=== PATIENT | male | born 1945 | race Caucasian/White ===

== ENCOUNTER 2017-12-20 14:31 | Emergency (ER) | payer OTHER ==
[~2017-12-20] VITALS: Ht 180.3 cm; Wt 72.6 kg
[2017-12-20 14:59] VITALS: BP 133/76
[2017-12-20] MEDS ORDERED: NKM (15:04)
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
[2017-12-20] MEDS ORDERED: CEPHALEXIN500 MG ORAL (15:37)
[2017-12-20] MEDS ORDERED: BACTRIM DS TAB1 EAC1 ORAL (15:37)
[2017-12-20 15:48] VITALS: BP 133/76
--- NOTE | 2017-12-20 17:55 | Diagnostic Imaging Report ---
Indication: Pain Technique: XRAY Leg Lower Tib Fib 2v L Comparison: None Findings: There is no evidence of acute fracture or dislocation. There are moderate degenerative changes of the partially visualized knee with chondrocalcinosis and tricompartmental osteophytes as well as joint space narrowing. The partially visualized ankle is grossly preserved. No radiopaque foreign body seen. IMPRESSION: No evidence of acute fracture or dislocation. Moderate osteoarthrosis of the partially visualized knee.
== END 2017-12-20 16:30 | disposition home or self-care (01) ==
LOC: EMR 16:21
DX: R21 Rash and other nonspecific skin eruption (principal); M17.12 Unilateral primary osteoarthritis, left knee
CPT/HCPCS: 99284

== ENCOUNTER 2020-10-15 04:29 | Inpatient (IN) | payer OTHER ==
[~2020-10-15] VITALS: Ht 175.3 cm; Wt 70.3 kg
[2020-10-15] VITALS (20 sets, daily range): BP systolic 111–198; BP diastolic 59–132
[~2020-10-15 04:29] MED LIST: BACTRIM DS TAB1 EAC1 ORAL; CEPHALEXIN500 MG ORAL; NKM
--- NOTE | 2020-10-15 04:35 | NUR ---
Patient arrived to ER via ambulatory c/o fall that occured about 30 minutes ago, patient reports of waking up on the floor. and fell down , pte report LOC for almost 2 min. Patient presents with a hematoma located on patients left upper forehead . New orders received from EDP and carried out. All procedures were explain to the patient . Patient verbalized understanding. Safety and comfort measures taken: bed set in low position, frequent rounds, call light within reach. Will continue monitoring the patient during the sift.
--- NOTE | 2020-10-15 05:01 | Emergency Room Report ---
History of Present Illness General Chief Complaint: Multiple Trauma/Fall Source: Patient Present Illness HPI 74-year-old male presents for evaluation. States that he woke up on the floor next to his bed. Has a large swelling to his forehead. Does not remember what happened. Also in triage heart rate is irregular. States that his family history of A. fib. Does not take any medication for it at the time. Denies chest pain or shortness of breath. Denies any dizziness. No other aggravating relieving factors. 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 Patient History Past Medical History: none Past Surgical History: none Pertinent Family History: none Social History: Denies: smoking, alcohol use, drug use Immunizations: UTD Reviewed Nursing Documentation: PMH: Agreed; PSxH: Agreed Nursing Documentation-PMH Past Medical History: No History, Except For Review of Systems All Other Systems: negative except mentioned in HPI Physical Exam Vital Signs Date Time Temp Pulse Resp B/P (MAP) Pulse Ox O2 Delivery O2 Flow Rate FiO2 10/15/20 04:37 96.8 34 18 138/82 (100) 95 Room Air Sp02 EP Interpretation: reviewed, normal General Appearance: no apparent distress, alert, GCS 15, non-toxic Head: normocephalic, other - large hematoma to forehead Eyes: bilateral eye normal inspection, bilateral eye PERRL ENT: hearing grossly normal, normal pharynx, no angioedema, normal voice Neck: full range of motion, supple/symm/no masses Respiratory: chest non-tender, lungs clear, normal breath sounds, speaking full sentences Cardiovascular #1: bradycardia Cardiovascular #2: 2+ carotid (R), 2+ carotid (L), 2+ radial (R), 2+ radial (L), 2+ dorsalis pedis (R), 2+ dorsalis pedis (L) Gastrointestinal: normal bowel sounds, non tender, soft, non-distended, no guarding, no rebound Rectal: deferred Genitourinary: normal inspection, no CVA tenderness Musculoskeletal: back normal, normal range of motion, gait/station normal, non- tender Neurologic: alert, motor strength/tone normal, oriented x3, sensory intact, responsive, speech normal Psychiatric: judgement/insight normal, memory normal, mood/affect normal, no suicidal/homicidal ideation Reflexes: 3+ bicep (R), 3+ bicep (L), 3+ tricep (R), 3+ tricep (L), 3+ knee (R), 3+ knee (L) Skin: no rash Lymphatic: no adenopathy Procedures Critical Care Time Critical Care Time Critical care shortcut i. I feel this is a highly complex case requiring extensive working including EKG/Rhythm strip, Xray/CT/US, Blood/urine lab work, repeat exams while in ED, and administration of strong opiates/narcotics for pain control, admission to hospital or close patient follow up. Total time: 60 min bedside evaluation and treatment excludes procedures (EKG). Reason for critical care: syncope, heart block Possible complications: hypotension, hypertension, ID, shock, arrhythmias, metabolic acidosis, end organ damage, respiratory failure. Interventions: Labs, IV fluids, EKG, chest x-ray, CT head, repeat EKG, discussion with cardiology, discussion with the EP, aspirin, ICU Course: Patient presenting with syncopal episode and head injury. Large swelling to forehead. CT head negative. Troponin minimally elevated. Initial EKG appears has a flutter however patient is shaking significantly. Once warming blankets applied and reassessed repeat EKG shows to be third-degree heart block. Blood pressure maintaining. Patient alert and oriented. Discussed with cardiology. Echo ordered. Aspirin given. Patient will be admitted to ICU Consultations: nursing staff, EMS, family Performed by: Dr Rowell Tolerated well condition = critical j. because of unstable vital signs this patient had a condition that could potentially threaten life or limb. I feel this is a critical patient who required my full attention while patient was considered critical. Total Critical Care Time excluding procedures was greater than 60 minutes Medical Decision Making Diagnostic Impression: Primary Impression: Syncope Qualified Codes: R55 - Syncope and collapse Additional Impressions: Head injury Qualified Codes: S09.90XA - Unspecified injury of head, initial encounter Third degree heart block ER Course Hospital Course 74-year-old male presents with syncopal episode, head injury from home Differential diagnoses include: ID/unstable angina, arrythmia, dehydration, CVA/TIA Clinical course Patient placed on stretcher. on groundwater monitoring technician. After initial history and physical I ordered labs, EKG, chest x-ray, IVFs, CT Brain labs reviewed- minimal leukocytosis, hemoglobin/hematocrit ok, electrolytes okay, initial troponin 0.062 EKG-initial EKG appears as a flutter however patient was shaking tremendously stating he is cold. Warming blankets provided on repeat EKG appears to be in third-degree heart block confirmed with cardiology Chest x-ray- no acute process CT brain-no intracranial process, scalp hematoma noted Patient is mentating and blood pressure is maintaining. No immediate requirement for transcutaneous pacing. However patient will likely require a pacemaker per discussion with cardiology. Echo ordered. Aspirin given. Patient will be admitted to the ICU Case discussed with Dr. Ambrosio and he agreed to accept the patient to his service for further care and support I. I feel this is a highly complex case requiring extensive working including EKG/Rhythm strip, Xray/CT/US, Blood/urine lab work, repeat exams while in ED, and administration of strong opiates/narcotics for pain control, admission to hospital or close patient follow up. Diagnosis -syncope, head injury, third-degree heart block admitted to ICU in critical condition Labs Test 10/15/20 04:55 10/16/20 03:11 Prothrombin Time 11.2 SEC (9.30-11.50) Prothromb Time International Ratio 1.0 (0.9-1.1) Activated Partial Thromboplast Time 24 SEC (23-33) White Blood Count 8.5 K/UL (4.8-10.8) Red Blood Count 4.08 M/UL (4.70-6.10) Hemoglobin 13.6 G/DL (14.2-18.0) Hematocrit 40.1 % (42.0-52.0) Mean Corpuscular Volume 98 FL (80-99) Mean Corpuscular Hemoglobin 33.4 PG (27.0-31.0) Mean Corpuscular Hemoglobin Concent 34.0 G/DL (32.0-36.0) Red Cell Distribution Width 12.6 % (11.6-14.8) Platelet Count 126 K/UL (150-450) Mean Platelet Volume 6.9 FL (6.5-10.1) Neutrophils (%) (Auto) 68.9 % (45.0-75.0) Lymphocytes (%) (Auto) 20.8 % (20.0-45.0) Monocytes (%) (Auto) 8.1 % (1.0-10.0) Eosinophils (%) (Auto) 1.8 % (0.0-3.0) Basophils (%) (Auto) 0.5 % (0.0-2.0) Sodium Level 144 MMOL/L (136-145) Potassium Level 3.6 MMOL/L (3.5-5.1) Chloride Level 111 MMOL/L (98-107) Carbon Dioxide Level 24 MMOL/L (21-32) Anion Gap 9 mmol/L (5-15) Blood Urea Nitrogen 25 mg/dL (7-18) Creatinine 1.2 MG/DL (0.55-1.30) Estimat Glomerular Filtration Rate 58.9 mL/min (>60) Glucose Level 87 MG/DL (74-106) Calcium Level 8.7 MG/DL (8.5-10.1) Total Bilirubin 0.6 MG/DL (0.2-1.0) Aspartate Amino Transf (AST/SGOT) 23 U/L (15-37) Alanine Aminotransferase (ALT/SGPT) 32 U/L (12-78) Alkaline Phosphatase 52 U/L (46-116) Troponin I 0.107 ng/mL (0.000-0.056) Pro-B-Type Natriuretic Peptide 4828 pg/mL (0-125) Total Protein 5.5 G/DL (6.4-8.2) Albumin 3.2 G/DL (3.4-5.0) Globulin 2.3 g/dL Albumin/Globulin Ratio 1.4 (1.0-2.7) Thyroid Stimulating Hormone (TSH) 2.816 uiU/mL (0.358-3.740) Free Thyroxine 0.98 NG/DL (0.76-1.46) EKG Diagnostic Results Troponin ordered: Yes Rate: bradycardiac Rhythm: other - 3rd degree block ST Segments: no acute changes ASA given to the pt in ED: Yes Rhythm Strip Diag. Results EP Interpretation: yes Rhythm: other - 3rd degree block Chest X-Ray Diagnostic Results Chest X-Ray Diagnostic Results : Chest X-Ray Ordered: Yes # of Views/Limited/Complete: 1 View Indication: Chest Pain EP Interpretation: Yes Interpretation: no consolidation, no effusion, no pneumothorax, no acute cardiopulmonary disease Impression: No acute disease Electronically Signed by: Electronically signed by Luis Rowell MD CT/MRI/US Diagnostic Results CT/MRI/US Diagnostic Results : Imaging Test Ordered: CT Head Impression Procedure: CT Head no Contrast EXAM: CT Head Without Intravenous Contrast CLINICAL HISTORY: SYNCOPE TECHNIQUE: Axial computed tomography images of the head/brain without intravenous contrast. CTDI is 53.4 mGy and DLP is 1098.9 mGy-cm. One or more of the following dose reduction techniques were used: automated exposure control, adjustment of the mA and/or kV according to patient size, use of iterative reconstruction technique. COMPARISON: No relevant prior studies available. FINDINGS: Brain: No hemorrhage, extra-axial fluid collection, mass effect, or edema. Ventricles: Unremarkable. Bones/joints: Unremarkable. No fracture. Soft tissues: Anterior left scalp hematoma. Sinuses: Unremarkable as visualized. Mastoid air cells: Unremarkable as visualized. IMPRESSION: 1. No acute intracranial abnormality. 2. Anterior left scalp hematoma. Last Vital Signs Date Time Temp Pulse Resp B/P (MAP) Pulse Ox O2 Delivery O2 Flow Rate FiO2 10/15/20 04:37 96.8 34 18 138/82 (100) 95 Room Air Status: improved Disposition: ADMITTED INPATIENT Condition: Critical Referrals: NON PHYSICIAN (PCP) Luis Rowell MD Oct 15, 2020 05:01
[2020-10-15 05:10] LABS: BASOPHILS % (AUTO) 0.8 % (0.0-2.0); EOSINOPHILS % (AUTO) 2.5 % (0.0-3.0); HEMATOCRIT 48.5 % (42.0-52.0); HEMOGLOBIN 16.1 G/DL (14.2-18.0); LYMPHOCYTES % (AUTO) 24.7 % (20.0-45.0); MEAN CORPUSCULAR VOLUME 99 FL (80-99); MONOCYTES % (AUTO) 7.4 % (1.0-10.0); NEUTROPHILS % (AUTO) 64.6 % (45.0-75.0); PLATELET COUNT 201 K/UL (150-450); RED CELL DISTRIBUTION WIDTH 12.7 % (11.6-14.8)
[2020-10-15 05:21] LABS: CALCIUM 9.4 MG/DL (8.5-10.1); CREATININE 1.2 MG/DL (0.55-1.30); POTASSIUM 3.3 MMOL/L (3.5-5.1)
[2020-10-15 05:32] LABS: ALBUMIN/GLOBULIN RATIO 1.3 (1.0-2.7); BILIRUBIN,TOTAL 0.7 MG/DL (0.2-1.0)
--- NOTE | 2020-10-15 05:52 | NUR ---
Patient in bed in comfortable position All vitals signs were taken and reported. Urine and blood were collected and sent them to the lab. Fluid is running. Pte already went to a CT accopained of transporter. Patient continuous attached to the monitor. Will continue to monitor the patient.
--- NOTE | 2020-10-15 05:53 | Diagnostic Imaging Report ---
EXAM: XR Chest, 1 View CLINICAL HISTORY: SYNCOPE TECHNIQUE: Frontal view of the chest. COMPARISON: No relevant prior studies available. FINDINGS: Lungs: No consolidation. Pleural space: No pleural effusion. No pneumothorax. Heart: Unremarkable. No cardiomegaly. IMPRESSION: No acute cardiopulmonary abnormality.
--- NOTE | 2020-10-15 05:53 | Diagnostic Imaging Report ---
EXAM: CT Head Without Intravenous Contrast CLINICAL HISTORY: SYNCOPE TECHNIQUE: Axial computed tomography images of the head/brain without intravenous contrast. CTDI is 53.4 mGy and DLP is 1098.9 mGy-cm. One or more of the following dose reduction techniques were used: automated exposure control, adjustment of the mA and/or kV according to patient size, use of iterative reconstruction technique. COMPARISON: No relevant prior studies available. FINDINGS: Brain: No hemorrhage, extra-axial fluid collection, mass effect, or edema. Ventricles: Unremarkable. Bones/joints: Unremarkable. No fracture. Soft tissues: Anterior left scalp hematoma. Sinuses: Unremarkable as visualized. Mastoid air cells: Unremarkable as visualized. IMPRESSION: 1. No acute intracranial abnormality. 2. Anterior left scalp hematoma.
--- NOTE | 2020-10-15 06:26 | NUR ---
ICU Nurse Note: Received report from KATY Hong. Per report, patient walked into the ER c/o fall that occured about 30 minutes prior to arrival. Patient presents with a hematoma located on patients left upper forehead. CT head is negative. Parient HR is low to 50s. BP 142/86. 1000mL bolus is infusing. Dr. Stearns is planning to put a pacemaker. Primary MD will be Dr. Ambrosio. VRE and MRSA test will be done at ED. Waiting arrival of patient.
--- NOTE | 2020-10-15 06:30 | NUR ---
Pte was admitted to ICU report given to the nurse . All belongs were packaged and sent them with the pte. Pacient left ER in stable condition accompained of addi BURNS.
--- NOTE | 2020-10-15 07:06 | NUR ---
NURSE NOTES: Patient transferred to the ICU floor. Reconnect to cardioac monitor and took vitals. Will endorse to AM shift. Detail, please SEE FLARING MACHINE OPERATOR note.
--- NOTE | 2020-10-15 07:10 | NUR ---
NURSE NOTES: Received report from Pauline Tariq RN.Pt is a new admission fr ED awake,alert oriented in RA noted no resp distress,denies any c/o chest pain or discomfort,pt on Aflutter in and out heart block on the monitor,skin warm and dry with IV heplock x2 LFA and RAC intact,SR up x2 HOB elevated bed lock in lowest position,will continue with plans of care.
--- NOTE | 2020-10-15 07:50 | NUR ---
NURSE NOTES: Called Dr Ambrosio for admission orders,awaiting return of call.
--- NOTE | 2020-10-15 09:00 | NUR ---
NURSE NOTES: Pt with hematoma to LT forehead ,ice pack applied.
--- NOTE | 2020-10-15 09:10 | History & Physical ---
History and Physical History & Physicial 74-year-old male presents for evaluation. Patient woke up on the floor next to his bed. + large swelling to his forehead. Does not remember what happened. Does not take any medication for it at the time. Denies chest pain or shortness of breath. Denies any dizziness. No other aggravating relieving factors. Denies any other associated symptoms. noted to be in possible Afib and heart block Allergies: No Known Allergies (Unverified , 12/20/17) Patient History Past Medical History: none Past Surgical History: none Pertinent Family History: none Social History: Denies: smoking, alcohol use, drug use Reviewed of systems: otherwise negative Physical WDWN NAD clear breath sounds bilaterally without rhonchi or wheeze [id number] lucia without MRG NABS nontender no HSM no CCE nonfocal Laboratory Tests 10/15/20 04:55: White Blood Count 12.0H, Red Blood Count 4.90, Hemoglobin 16.1, Hematocrit 48.5, Mean Corpuscular Volume 99, Mean Corpuscular Hemoglobin 32.9H, Mean Corpuscular Hemoglobin Concent 33.2, Red Cell Distribution Width 12.7, Platelet Count 201, Mean Platelet Volume 7.8, Neutrophils (%) (Auto) 64.6, Lymphocytes (%) (Auto) 24.7, Monocytes (%) (Auto) 7.4, Eosinophils (%) (Auto) 2.5, Basophils (%) (Auto) 0.8, Prothrombin Time 11.2, Prothromb Time International Ratio 1.0, Activated Partial Thromboplast Time 24, Sodium Level 143, Potassium Level 3.3L, Chloride Level 107, Carbon Dioxide Level 26, Anion Gap 10, Blood Urea Nitrogen 21H, Creatinine 1.2, Estimat Glomerular Filtration Rate 58.9, Glucose Level 124H, Calcium Level 9.4, Total Bilirubin 0.7, Aspartate Amino Transf (AST/SGOT) 30, Alanine Aminotransferase (ALT/SGPT) 45, Alkaline Phosphatase 70, Troponin I 0.062H, Pro-B-Type Natriuretic Peptide 3417H, Total Protein 7.1, Albumin 4.0, Globulin 3.1, Albumin/Globulin Ratio 1.3 IMPRESSION possible a flutter possible heart block syncope PLAN ICU care EP to see echo TSH iv hydration external pacer if needed impression, plan, and exam edited and reviewed in detail care discussed with Maninder Castro MD Oct 15, 2020 09:10
--- NOTE | 2020-10-15 10:30 | NUR ---
NURSE NOTES: Dr Ambrosio here and seen pt , admission orders given.
[2020-10-15] MEDS: Pantoprazole Inj IVP SCH (11:14)
--- NOTE | 2020-10-15 15:00 | NUR ---
NURSE NOTES: Dr Rothman at bedside,discussed with pt re plans of care,insertion of pacemaker,pt undecided to sign consent,will be talking ist to his family member a hospital educator for a second opinion.
--- NOTE | 2020-10-15 15:01 | NUR ---
CASE MANAGEMENT:REVIEW 74 YR OLD MALE PRESENTED TO ER CC: WOKE UP ON THE FLOOR. LT UPPER FOREHEAD HEMATOMA NOTED SI: SYNCOPE. AFLUTTER. HEAD INJURY 96.8 34 18 138/82 95% ON RA WBC+12.0 TROPONIN(+) 0.062 BNP+3417 TSH+5.315 IS: 1L NS BOLUS ASA PO ATROPINE PRN CT HEAD CXR : ICU STATUS
--- NOTE | 2020-10-15 15:24 | Cardiac Electrophysiology PN ---
Subjective Subjective [id number] Objective Last 24 Hour Vital Signs Date Time Temp Pulse Resp B/P (MAP) Pulse Ox O2 Delivery O2 Flow Rate FiO2 10/15/20 15:00 91 21 152/59 (90) 93 10/15/20 14:00 119 21 119/68 (85) 93 10/15/20 13:00 80 22 111/71 (84) 95 10/15/20 12:06 Nasal Cannula 2.0 10/15/20 12:00 98.4 71 15 144/72 (96) 99 10/15/20 11:00 31 22 188/59 (102) 99 10/15/20 10:00 31 13 137/80 (99) 98 10/15/20 09:03 83 20 137/80 (99) 98 10/15/20 09:00 28 13 97 10/15/20 08:00 83 21 97 10/15/20 08:00 97.9 10/15/20 08:00 Nasal Cannula 2.0 10/15/20 08:00 82 19 137/80 (99) 97 10/15/20 08:00 30 10/15/20 08:00 Nasal Cannula 2.0 10/15/20 07:00 88 17 144/66 (92) 98 10/15/20 06:39 98.0 86 18 137/84 (101) 98 10/15/20 05:50 97.5 40 20 130/88 97 Room Air 10/15/20 04:37 96.8 34 18 138/82 (100) 95 Room Air Intake and Output 10/14/20 10/15/20 19:00 07:00 Intake Total 0 ml Balance 0 ml Intake Oral 0 ml Laboratory Tests Test 10/15/20 04:55 White Blood Count 12.0 K/UL (4.8-10.8) H Red Blood Count 4.90 M/UL (4.70-6.10) Hemoglobin 16.1 G/DL (14.2-18.0) Hematocrit 48.5 % (42.0-52.0) Mean Corpuscular Volume 99 FL (80-99) Mean Corpuscular Hemoglobin 32.9 PG (27.0-31.0) H Mean Corpuscular Hemoglobin Concent 33.2 G/DL (32.0-36.0) Red Cell Distribution Width 12.7 % (11.6-14.8) Platelet Count 201 K/UL (150-450) Mean Platelet Volume 7.8 FL (6.5-10.1) Neutrophils (%) (Auto) 64.6 % (45.0-75.0) Lymphocytes (%) (Auto) 24.7 % (20.0-45.0) Monocytes (%) (Auto) 7.4 % (1.0-10.0) Eosinophils (%) (Auto) 2.5 % (0.0-3.0) Basophils (%) (Auto) 0.8 % (0.0-2.0) Prothrombin Time 11.2 SEC (9.30-11.50) Prothromb Time International Ratio 1.0 (0.9-1.1) Activated Partial Thromboplast Time 24 SEC (23-33) Sodium Level 143 MMOL/L (136-145) Potassium Level 3.3 MMOL/L (3.5-5.1) L Chloride Level 107 MMOL/L (98-107) Carbon Dioxide Level 26 MMOL/L (21-32) Anion Gap 10 mmol/L (5-15) Blood Urea Nitrogen 21 mg/dL (7-18) H Creatinine 1.2 MG/DL (0.55-1.30) Estimat Glomerular Filtration Rate 58.9 mL/min (>60) Glucose Level 124 MG/DL (74-106) H Calcium Level 9.4 MG/DL (8.5-10.1) Total Bilirubin 0.7 MG/DL (0.2-1.0) Aspartate Amino Transf (AST/SGOT) 30 U/L (15-37) Alanine Aminotransferase (ALT/SGPT) 45 U/L (12-78) Alkaline Phosphatase 70 U/L (46-116) Troponin I 0.062 ng/mL (0.000-0.056) Pro-B-Type Natriuretic Peptide 3417 pg/mL (0-125) H Total Protein 7.1 G/DL (6.4-8.2) Albumin 4.0 G/DL (3.4-5.0) Globulin 3.1 g/dL Albumin/Globulin Ratio 1.3 (1.0-2.7) Thyroid Stimulating Hormone (TSH) 5.315 uiU/mL (0.358-3.740) Jacky Rothman MD Oct 15, 2020 15:24
--- NOTE | 2020-10-15 16:00 | NUR ---
NURSE NOTES: Pt decided to have the procedure,pacemaker insertion on Saturday but would like to go home today and come back Saturday.Call placed to Dr Ambrosio re pt's wanting to be discharge today.
--- NOTE | 2020-10-15 16:14 | Consultation ---
DATE OF CONSULTATION: 10/15/2020 CARDIAC ELECTROPHYSIOLOGY CONSULTATION CONSULTING PHYSICIAN: Jacky Rothman MD REFERRING PHYSICIAN: Maninder Ambrosio MD REASON FOR CONSULTATION: Atrial flutter as well as syncope and complete heart block. HISTORY OF PRESENT ILLNESS: The patient is a 74-year-old gentleman with history of syncope a year ago as well as 9 months ago for which he did not seek any medical attention. Today, the patient woke up on the floor next to his bed with a large swelling on his forehead. He does not remember what happened. In the emergency room, the patient was in atrial flutter with complete heart block and then converted to sinus rhythm again with complete heart block with heart rate down to 30s. The patient was then admitted to intensive care unit and cardiac electrophysiology consultation was requested for further evaluation. It is of note the patient is not on any sinus-shira or AV-shira blocking agents and is on essentially no medication at home. REVIEW OF SYSTEMS: Negative other than what is mentioned in the history of present illness. PAST MEDICAL HISTORY: Negative. PAST SURGICAL HISTORY: Negative. FAMILY HISTORY: His father had atrial flutter. 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 PHYSICAL EXAMINATION: VITAL SIGNS: Show blood pressure of 152/59, pulse is 70 but as low as 31 respirations 18, and he is afebrile. HEAD AND NECK: Shows no JVD or carotid bruit. LUNGS: Clear. CARDIOVASCULAR: Regular S1 and S2 with no gallop or murmur. ABDOMEN: Soft. EXTREMITIES: No pitting edema. LABORATORY AND DIAGNOSTIC DATA: His labs show white count of 12, hemoglobin 16, hematocrit 48.5, and platelet count of 201. Sodium 142, potassium 3.3, BUN of 21, creatinine 1.2, and glucose of 124. Troponin 0.062. ProBNP is 3417. TSH is 5.315. ASSESSMENT AND PLAN: 1. Complete heart block, not due to correctable cause. The patient is off of any sinus-shira or AV-shira blocking agents. The TSH is mildly elevated at 5.3. At this range, hypothyroidism would not cause this significant complete heart block resulting in syncope. This is a class 1 indication for permanent pacemaker implantation; however, at this time, the patient is refusing temporary transcutaneous or transvenous pacing and wants to think about permanent pacemaker placement. 2. Transient atrial flutter. The patient says his father also had atrial flutter. Currently, he converted spontaneously to sinus rhythm. He may need anticoagulation, but most importantly, he will need pacemaker implantation. After pacemaker implantation, we can see the burden of atrial flutter by pacemaker checks. 3. Elevated TSH. Endocrinology consultation is pending. Thank you very much, Dr. Ambrosio, for allowing me to participate in the care of this patient. Please do not hesitate to contact me for any questions regarding my evaluation. Jacky Rothman M.D. [facility] JOB#: [id number] CC:
--- NOTE | 2020-10-15 17:00 | NUR ---
NURSE NOTES: Dr Ambrosio returned call and said to have pt signed AMA if he insist on going home.Explained to pt re risk and danger to himself if he will go home at this time.Pt called his family again and have a discussion with them.
--- NOTE | 2020-10-15 18:29 | Consultation ---
DATE OF CONSULTATION: 10/15/2020 CARDIOLOGY CONSULTATION CONSULTING PHYSICIAN: Naresh Topete MD. REFERRING PHYSICIAN: Maninder Ambrosio MD. REASON FOR CONSULTATION: Atrial flutter and heart block. HISTORY OF PRESENT ILLNESS: I was contacted by the emergency room physician early this morning to discuss management of this 74-year-old white male, who presented to the hospital with syncope. This was his third event starting dating back to almost a year ago. The patient did not recall the event, but woke up on the floor with a large swelling on his forehead. In the emergency room, his EKG revealed atrial flutter with episodes of complete heart block then converted to sinus rhythm. The patient's blood pressure remained stable. PAST MEDICAL HISTORY: The patient has no other medical history. MEDICATIONS: He does not take any medications. SOCIAL HISTORY: Negative for smoking, alcohol, or substance abuse. FAMILY HISTORY: His father had atrial flutter. REVIEW OF SYSTEMS: Otherwise unremarkable. PHYSICAL EXAMINATION: VITAL SIGNS: Blood pressure 150/60, pulse 40, respirations 18. HEENT: Conjunctivae are pink. Oropharynx clear. NECK: Supple. No bruits. Jugular venous pressure normal. LUNGS: Clear. CARDIAC: Regular rhythm, slow rate. Normal S1, S2. No murmur. ABDOMEN: Soft. EXTREMITIES: No edema. LABORATORY DATA: Notable for TSH of 5.3, pro-natriuretic peptide of 3400. Potassium 3.3, BUN 21, creatinine 1.2, sodium 142. Hemoglobin 16. elevated minimally at 0.062. IMPRESSION: 1. Conduction system disease with advanced heart block. 2. Paroxysmal atrial flutter, clinically insignificant. 3. TSH elevation that would unlikely cause this degree of heart block. 4. Elevated natriuretic peptide assay with no clinical signs of acute congestive heart failure presently. PLAN: 1. Cardiac monitoring. 2. Atropine at bedside. 3. Antiplatelet therapy. 4. I have asked the emergency room physician to contact Dr. Rothman as we will likely need a pacemaker, either a temporary or at least permanent during this hospital stay. 5. We will follow. Naresh Topete M.D. : [facility] JOB#: [id number] CC:
--- NOTE | 2020-10-15 18:55 | NUR ---
NURSE NOTES: Pt signed consent for Pacemaker insertion for tomorrow,called Dr Rothman to notify re pt's agreeing to sign consent for the procedure .Dr Rothman ordered to keep pt NPO post MN and start an IVF D5NS at 60 ml/hr.
--- NOTE | 2020-10-15 19:00 | NUR ---
Patient is calm no acute distress, is bradycardic refer to MR for vitals. Patient is GCS 15. Safety measures in place, call [facility] within reach.
--- NOTE | 2020-10-15 19:15 | NUR ---
NURSE HAND-OFF REPORT: Latest Vital Signs: Temperature 98.0 , Pulse 82 , B/P 125 /87 , Respiratory Rate 18 , O2 SAT 98 , Room Air, O2 Flow Rate 2.0 . Vital Sign Comment: unstable EKG Rhythm: 3rd Degree HB Rhythm change?: Scarlet CAPPS Notified?: RENE IBARRA MD Response: MD to See Patient Latest Moeller Fall Score: 45 Fall Risk: High Risk Safety Measures: Call light Within Reach, Bed Alarm Zone 2, Side Rails Side Rails x2, Bed position Low and Locked. Fall Precautions: Yellow Socks Yellow Gown Door Sign Patient Fall Education Report given to Carie Marques RN.
[2020-10-15] MEDS: Atropine Inj 1mg/10ml Syr IVP PRN (19:50)
[2020-10-15] MEDS: Heparin 5000 units/ml inj SUBQ SCH (21:00)
[2020-10-16] VITALS (25 sets, daily range): BP systolic 114–202; BP diastolic 53–152
[2020-10-16] MEDS: D5NS 1,000 ML IV SCH ×2 (00:29→11:40)
[2020-10-16] MEDS: Atropine Inj 1mg/10ml Syr IVP PRN (01:44)
[2020-10-16 05:50] LABS: BASOPHILS % (AUTO) 0.5 % (0.0-2.0); EOSINOPHILS % (AUTO) 1.8 % (0.0-3.0); HEMATOCRIT 40.1 % (42.0-52.0); HEMOGLOBIN 13.6 G/DL (14.2-18.0); LYMPHOCYTES % (AUTO) 20.8 % (20.0-45.0); MEAN CORPUSCULAR VOLUME 98 FL (80-99); MONOCYTES % (AUTO) 8.1 % (1.0-10.0); NEUTROPHILS % (AUTO) 68.9 % (45.0-75.0); PLATELET COUNT 126 K/UL (150-450); RED BLOOD COUNT 4.08 M/UL (4.70-6.10); RED CELL DISTRIBUTION WIDTH 12.6 % (11.6-14.8); WHITE BLOOD COUNT 8.5 K/UL (4.8-10.8)
[2020-10-16 06:52] LABS: ALBUMIN 3.2 G/DL (3.4-5.0); ALBUMIN/GLOBULIN RATIO 1.4 (1.0-2.7); BILIRUBIN,TOTAL 0.6 MG/DL (0.2-1.0); CALCIUM 8.7 MG/DL (8.5-10.1); CREATININE 1.2 MG/DL (0.55-1.30); POTASSIUM 3.6 MMOL/L (3.5-5.1)
--- NOTE | 2020-10-16 07:20 | NUR ---
NURSE NOTES: Report received from Carie Marques,travelling RN.Pt awake,alert noted no resp distress on RA refuse to wear O2,O2 sat 99%,denies any c/o chest pain HR 30/min,3rd deg HB,kept NPO post MN ,pt for pacemaker insertion,skin warm and dry,IV site to RAC and LT FA intact with IVF D5 1/2 NS at 60ml/hr ,both IV sites intact, SR up x2 HOB elevated bed lock in lowest position will continue with plans of care.,
--- NOTE | 2020-10-16 08:00 | NUR ---
NURSE NOTES: PT Seen by Dr Ambrosio,updated re pt status,discussed with plans of care,to discharge pt tomorrow when stable after the pacer insertion.
--- NOTE | 2020-10-16 08:48 | General Progress Note ---
Subjective Allergies: Coded Allergies: No Known Allergies (Unverified , 12/20/17) Subjective events noted cards/EP appreciated Objective Last 24 Hour Vital Signs Date Time Temp Pulse Resp B/P (MAP) Pulse Ox O2 Delivery O2 Flow Rate FiO2 10/16/20 08:00 Nasal Cannula 2.0 10/16/20 08:00 96.6 33 19 202/85 (124) 96 10/16/20 07:00 67 19 96 10/16/20 06:00 59 19 162/66 (98) 96 10/16/20 05:00 59 19 171/67 (101) 96 10/16/20 04:00 62 21 186/70 (108) 97 10/16/20 04:00 Nasal Cannula 2.0 10/16/20 03:00 74 27 114/53 (73) 98 10/16/20 02:00 76 24 145/65 (91) 10/16/20 00:00 Nasal Cannula 2.0 10/16/20 00:00 75 21 98 10/15/20 23:00 44 16 198/130 (152) 97 10/15/20 22:00 51 19 184/59 (100) 94 10/15/20 21:00 34 17 162/132 (142) 97 10/15/20 20:00 Nasal Cannula 2.0 10/15/20 20:00 39 16 176/59 (98) 97 10/15/20 19:00 68 17 170/62 (98) 97 10/15/20 18:00 82 18 125/87 (100) 98 10/15/20 17:00 98.0 101 31 122/78 (93) 98 10/15/20 16:00 Nasal Cannula 2.0 10/15/20 16:00 69 21 139/91 (107) 98 10/15/20 15:00 91 21 152/59 (90) 93 10/15/20 14:00 119 21 119/68 (85) 93 10/15/20 13:00 80 22 111/71 (84) 95 10/15/20 12:06 Nasal Cannula 2.0 10/15/20 12:00 98.4 71 15 144/72 (96) 99 10/15/20 11:00 31 22 188/59 (102) 99 10/15/20 10:00 31 13 137/80 (99) 98 10/15/20 09:03 83 20 137/80 (99) 98 10/15/20 09:00 28 13 97 Intake and Output 10/15/20 10/16/20 19:00 07:00 Intake Total 1530 ml 50 ml Output Total 701 ml 0 ml Balance 829 ml 50 ml Intake Oral 1130 ml 50 ml IV Total 400 ml Output Urine Total 701 ml 0 ml # Bowel Movements 2 1 Laboratory Tests 10/15/20 19:05: Troponin I 0.117H 10/16/20 03:11: Troponin I 0.107H, White Blood Count 8.5, Red Blood Count 4.08L, Hemoglobin 13.6L, Hematocrit 40.1L, Mean Corpuscular Volume 98, Mean Corpuscular Hemoglobin 33.4H, Mean Corpuscular Hemoglobin Concent 34.0, Red Cell Distribution Width 12.6, Platelet Count 126L, Mean Platelet Volume 6.9, Neutrophils (%) (Auto) 68.9, Lymphocytes (%) (Auto) 20.8, Monocytes (%) (Auto) 8.1, Eosinophils (%) (Auto) 1.8, Basophils (%) (Auto) 0.5, Sodium Level 144, Potassium Level 3.6, Chloride Level 111H, Carbon Dioxide Level 24, Anion Gap 9, Blood Urea Nitrogen 25H, Creatinine 1.2, Estimat Glomerular Filtration Rate 58.9, Glucose Level 87, Calcium Level 8.7, Total Bilirubin 0.6, Aspartate Amino Transf (AST/SGOT) 23, Alanine Aminotransferase (ALT/SGPT) 32, Alkaline Phosphatase 52, Pro-B-Type Natriuretic Peptide 4828H, Total Protein 5.5L, Albumin 3.2L, Globulin 2.3, Albumin/Globulin Ratio 1.4, Thyroid Stimulating Hormone (TSH) 2.816, Free Thyroxine 0.98 Height (Feet): 5 Height (Inches): 9.00 Weight (Pounds): 155 Objective WDWN NAD clear breath sounds bilaterally without rhonchi or wheeze [id number] lucia without MRG NABS nontender no HSM no CCE nonfocal Assessment/Plan Assessment/Plan: IMPRESSION transient a flutter possible heart block syncope pulmonary hypertension elevated TSH PLAN ICU care EP for pacemaker echo noted; may need right heart cath in future TSH iv hydration await cards clearance impression, plan, and exam edited and reviewed in detail care discussed with RN Ishaaya,Maninder M MD Oct 16, 2020 08:48
[2020-10-16] MEDS: Heparin 5000 units/ml inj SUBQ SCH ×2 (09:00→20:44)
[2020-10-16] MEDS: Pantoprazole Inj IVP SCH (09:22)
--- NOTE | 2020-10-16 11:30 | NUR ---
NURSE NOTES: hand blocker Carisa notified Dr Rothman and confirmed that Dr Rice said that Pacemaker surgery will be at 1400 today.
--- NOTE | 2020-10-16 13:15 | NUR ---
NURSE NOTES: Dr Rothman at bedside and seen pt before surgery.,per pt's request ,Dr Rothman called pt's family member ,a director of radiology.
[2020-10-16] MEDS ORDERED: Lidocaine 1% Plain 30 ml INJ ONE (13:27)
[2020-10-16] MEDS ORDERED: Isovue-M 300 15ml INJ ONE (13:27)
--- NOTE | 2020-10-16 13:27 | Cardiac Electrophysiology PN ---
Assessment/Plan Assessment/Plan 1. Complete heart block, not due to correctable cause. The patient is off of any sinus-shira or AV-shira blocking agents. The T4 and TSH are both normal. This is a class 1 indication for permanent pacemaker implantation; yesterday the patient was refusing temporary transcutaneous or transvenous pacing Today he is agreeable to PPM implant and is NPO and consent is signed 2. Transient atrial flutter. The patient says his father also had atrial flutter. Currently, he converted spontaneously to sinus rhythm. He may need anticoagulation, but most importantly, he will need pacemaker implantation. After pacemaker implantation, we can see the burden of atrial flutter by pacemaker checks. 3. Troponin leak. Low level and no CP. May need ischemia eval as inpatient or out patient FU Dr Efrem VAZQUEZ RN and Dr Hackett patient's out side registered nurse behavioral health Subjective Subjective Hr dropped to 20s in CHB. NPO for PPM implant today. He signded consent. At his request talked to Dr Hackett a family friend registered nurse behavioral health at [phone] who also agreed with PPM implant Objective Last 24 Hour Vital Signs Date Time Temp Pulse Resp B/P (MAP) Pulse Ox O2 Delivery O2 Flow Rate FiO2 10/16/20 13:00 98.6 30 15 136/56 (82) 98 10/16/20 12:00 Nasal Cannula 2.0 10/16/20 12:00 Nasal Cannula 2.0 10/16/20 12:00 37 17 164/64 (97) 98 10/16/20 11:12 30 11 202/61 (108) 100 10/16/20 09:00 30 19 181/72 (108) 96 10/16/20 08:00 Nasal Cannula 2.0 10/16/20 08:00 96.6 33 19 202/85 (124) 96 10/16/20 07:00 67 19 96 10/16/20 06:00 59 19 162/66 (98) 96 10/16/20 05:00 59 19 171/67 (101) 96 10/16/20 04:00 62 21 186/70 (108) 97 10/16/20 04:00 Nasal Cannula 2.0 10/16/20 03:00 74 27 114/53 (73) 98 10/16/20 02:00 76 24 145/65 (91) 10/16/20 00:00 Nasal Cannula 2.0 10/16/20 00:00 75 21 98 10/15/20 23:00 44 16 198/130 (152) 97 10/15/20 22:00 51 19 184/59 (100) 94 10/15/20 21:00 34 17 162/132 (142) 97 10/15/20 20:00 Nasal Cannula 2.0 10/15/20 20:00 39 16 176/59 (98) 97 10/15/20 19:00 68 17 170/62 (98) 97 10/15/20 18:00 82 18 125/87 (100) 98 10/15/20 17:00 98.0 101 31 122/78 (93) 98 10/15/20 16:00 Nasal Cannula 2.0 10/15/20 16:00 69 21 139/91 (107) 98 10/15/20 15:00 91 21 152/59 (90) 93 10/15/20 14:00 119 21 119/68 (85) 93 Intake and Output 10/15/20 10/16/20 19:00 07:00 Intake Total 1530 ml 110 ml Output Total 701 ml 0 ml Balance 829 ml 110 ml Intake Oral 1130 ml 50 ml IV Total 400 ml 60 ml Output Urine Total 701 ml 0 ml # Bowel Movements 2 1 Laboratory Tests Test 10/15/20 19:05 10/16/20 03:11 Troponin I 0.117 ng/mL (0.000-0.056) 0.107 ng/mL (0.000-0.056) White Blood Count 8.5 K/UL (4.8-10.8) Red Blood Count 4.08 M/UL (4.70-6.10) L Hemoglobin 13.6 G/DL (14.2-18.0) L Hematocrit 40.1 % (42.0-52.0) L Mean Corpuscular Volume 98 FL (80-99) Mean Corpuscular Hemoglobin 33.4 PG (27.0-31.0) H Mean Corpuscular Hemoglobin Concent 34.0 G/DL (32.0-36.0) Red Cell Distribution Width 12.6 % (11.6-14.8) Platelet Count 126 K/UL (150-450) L Mean Platelet Volume 6.9 FL (6.5-10.1) Neutrophils (%) (Auto) 68.9 % (45.0-75.0) Lymphocytes (%) (Auto) 20.8 % (20.0-45.0) Monocytes (%) (Auto) 8.1 % (1.0-10.0) Eosinophils (%) (Auto) 1.8 % (0.0-3.0) Basophils (%) (Auto) 0.5 % (0.0-2.0) Sodium Level 144 MMOL/L (136-145) Potassium Level 3.6 MMOL/L (3.5-5.1) Chloride Level 111 MMOL/L (98-107) H Carbon Dioxide Level 24 MMOL/L (21-32) Anion Gap 9 mmol/L (5-15) Blood Urea Nitrogen 25 mg/dL (7-18) H Creatinine 1.2 MG/DL (0.55-1.30) Estimat Glomerular Filtration Rate 58.9 mL/min (>60) Glucose Level 87 MG/DL (74-106) Calcium Level 8.7 MG/DL (8.5-10.1) Total Bilirubin 0.6 MG/DL (0.2-1.0) Aspartate Amino Transf (AST/SGOT) 23 U/L (15-37) Alanine Aminotransferase (ALT/SGPT) 32 U/L (12-78) Alkaline Phosphatase 52 U/L (46-116) Pro-B-Type Natriuretic Peptide 4828 pg/mL (0-125) H Total Protein 5.5 G/DL (6.4-8.2) L Albumin 3.2 G/DL (3.4-5.0) L Globulin 2.3 g/dL Albumin/Globulin Ratio 1.4 (1.0-2.7) Thyroid Stimulating Hormone (TSH) 2.816 uiU/mL (0.358-3.740) Free Thyroxine 0.98 NG/DL (0.76-1.46) Microbiology Date/Time Source Procedure Growth Status 10/15/20 13:20 Nasopharynx SARS-CoV-2 Antigen (Rapid)(BENEDICTO) - Final Complete 10/15/20 06:25 Rectum Unverified Objective HEENT: No JVD. Swelling and bruise above his Left eye NECK: Supple. No bruits. Jugular venous pressure normal. LUNGS: Clear. CARDIAC: Regular rhythm, slow rate. Normal S1, S2. No murmur. ABDOMEN: Soft. EXTREMITIES: No edema. Jacky Rothman MD Oct 16, 2020 13:26
--- NOTE | 2020-10-16 13:50 | NUR ---
NURSE NOTES: Pt brought down to OR per bed accompanied by transporter awake,alert oriented,stable,in no acute distress denies any c/o chest pain or discomfort.
--- NOTE | 2020-10-16 13:53 | Pre-Procedure Note/Attestation ---
Pre-Procedure Note/Attestation Complete Prior to Procedure Planned Procedure: left Procedure Narrative: DDD Permanent pacer implantation Indications for Procedure Pre-Operative Diagnosis: CHB Attestation I attest that I discussed the nature of the procedure; its benefits; risks and complications; and alternatives (and the risks and benefits of such alternatives), prior to the procedure, with the patient (or the patient's legal veterans contact representative). I attest that, if there was a reasonable possibility of needing a blood transfusion, the patient (or the patient's legal veterans contact representative) was given the [facility] standardized written summary, pursuant to the Roberto Stacy Blood Safety Act ([place] Health and Safety Code # 1645, as amended). I attest that I re-evaluated the patient just prior to the surgery and that there has been no change in the patient's H&P, except as documented below: Jacky Rothman MD Oct 16, 2020 13:53
[2020-10-16] MEDS ORDERED: NS Irrig 1000ml ONE (14:00)
[2020-10-16] MEDS ORDERED: Lidocaine 1% MPF 10mg/ml 5ml ONE (14:00)
[2020-10-16] MEDS ORDERED: Sterile Water Irrig 1000ml IRRIG ONE (14:00)
[2020-10-16] MEDS ORDERED: LR 1000ml ONE (14:00)
[2020-10-16] MEDS ORDERED: Sodium Chloride 10ml vial INJ ONE (14:08)
--- NOTE | 2020-10-16 14:21 | Anethesia Preoperative Eval ---
Anesthesia Pre-op PMH/ROS General Date of Evaluation: Oct 16, 2020 Time of Evaluation: 13:46 Anesthesiologist: Tasha ASA Score: ASA 4 - Emergency Mallampati Score Class I : Soft palate, uvula, fauces, pillars visible Class II: Soft palate, uvula, fauces visible Class III: Soft palate, base of uvula visible Class IV: Only hard plate visible Mallampati Classification: Class III Surgeon: Stephan Diagnosis: CHB Surgical Procedure: Permanent Pacemaker Anesthesia History: none Family History: no anesthesia problems Allergies: Coded Allergies: No Known Allergies (Unverified , 12/20/17) Medications: see eMAR Patient NPO?: Yes Past Medical History Cardiovascular: Reports: HTN, arrhythmia Musculoskeletal/Integumentary: Reports: other - Osteoporosis Anesthesia Pre-op Phys. Exam Physician Exam Last Vital Signs Date Time Temp Pulse Resp B/P (MAP) Pulse Ox O2 Delivery O2 Flow Rate FiO2 10/16/20 13:00 98.6 30 15 136/56 (82) 98 10/16/20 12:00 Nasal Cannula 2.0 Constitutional: NAD Neurologic: CN 2-12 intact Cardiovascular: RRR Respiratory: CTA Gastrointestinal: S/NT/ND Airway Exam Mallampati Score: Class III MO: full ROM: limited Teeth: missing, intact Anesthesia Pre-op A/P Labs Hematology Test 10/16/20 03:11 White Blood Count 8.5 K/UL (4.8-10.8) Red Blood Count 4.08 M/UL (4.70-6.10) L Hemoglobin 13.6 G/DL (14.2-18.0) L Hematocrit 40.1 % (42.0-52.0) L Mean Corpuscular Volume 98 FL (80-99) Mean Corpuscular Hemoglobin 33.4 PG (27.0-31.0) H Mean Corpuscular Hemoglobin Concent 34.0 G/DL (32.0-36.0) Red Cell Distribution Width 12.6 % (11.6-14.8) Platelet Count 126 K/UL (150-450) L Mean Platelet Volume 6.9 FL (6.5-10.1) Neutrophils (%) (Auto) 68.9 % (45.0-75.0) Lymphocytes (%) (Auto) 20.8 % (20.0-45.0) Monocytes (%) (Auto) 8.1 % (1.0-10.0) Eosinophils (%) (Auto) 1.8 % (0.0-3.0) Basophils (%) (Auto) 0.5 % (0.0-2.0) Chemistry Test 10/15/20 19:05 10/16/20 03:11 Troponin I 0.117 ng/mL (0.000-0.056) 0.107 ng/mL (0.000-0.056) Sodium Level 144 MMOL/L (136-145) Potassium Level 3.6 MMOL/L (3.5-5.1) Chloride Level 111 MMOL/L (98-107) H Carbon Dioxide Level 24 MMOL/L (21-32) Anion Gap 9 mmol/L (5-15) Blood Urea Nitrogen 25 mg/dL (7-18) H Creatinine 1.2 MG/DL (0.55-1.30) Estimat Glomerular Filtration Rate 58.9 mL/min (>60) Glucose Level 87 MG/DL (74-106) Calcium Level 8.7 MG/DL (8.5-10.1) Total Bilirubin 0.6 MG/DL (0.2-1.0) Aspartate Amino Transf (AST/SGOT) 23 U/L (15-37) Alanine Aminotransferase (ALT/SGPT) 32 U/L (12-78) Alkaline Phosphatase 52 U/L (46-116) Pro-B-Type Natriuretic Peptide 4828 pg/mL (0-125) H Total Protein 5.5 G/DL (6.4-8.2) L Albumin 3.2 G/DL (3.4-5.0) L Globulin 2.3 g/dL Albumin/Globulin Ratio 1.4 (1.0-2.7) Thyroid Stimulating Hormone (TSH) 2.816 uiU/mL (0.358-3.740) Free Thyroxine 0.98 NG/DL (0.76-1.46) Risk Assessment & Plan Assessment: ASA 4E Plan: TIVA Status Change Before Surgery: No Pre-Antibiotics Dru Gram Ancef IV Given Within 1 Hr of Incision: Yes Time Given: 14:21 Ibrahima Cordova MD Oct 16, 2020 14:21
--- NOTE | 2020-10-16 14:26 | Immediate Post-Op Evaluation ---
Immediate Post-Op Evalulation Immediate Post-Op Evalulation Procedure: Permanent Pacemaker Date of Evaluation: Oct 16, 2020 Time of Evaluation: 15:39 IV Fluids: 500 LR Blood Products: 0 Estimated Blood Loss: 100 Urinary Output: 0 Blood Pressure Systolic: 141 Blood Pressure Diastolic: 48 Pulse Rate: 66 Respiratory Rate: 16 O2 Sat by Pulse Oximetry: 100 Temperature (Fahrenheit): 98.6 Pain Score (1-10): 2 Nausea: No Vomiting: No Complications 0 Patient Status: awake, reacts, patent, none Hydration Status: adequate Dru Gram Ancef IV Given Within 1 Hr of Incision: Yes Time Given: 14:21 Ibrahima Cordova MD Oct 16, 2020 14:26
[2020-10-16] MEDS ORDERED: HYDROcodone/Acetamin 7.5/325 tab ORAL PRN (15:00)
[2020-10-16] MEDS ORDERED: fentaNYL 100 mcg/2 mL IV PRN (15:00)
[2020-10-16] MEDS ORDERED: oxyCODONE HCL/Acetaminophen 5/325mg ORAL PRN (15:00)
[2020-10-16] MEDS ORDERED: Meperidine 25mg/1ml Inj (FOR RIGORS ONLY) IV PRN (15:00)
[2020-10-16] MEDS ORDERED: HYDROcodone/Acetamin 5/325 tab ORAL PRN (15:00)
[2020-10-16] MEDS ORDERED: DiphenhydrAMINE 50mg/ml Inj IVP PRN (15:00)
[2020-10-16] MEDS ORDERED: Hydromorphone 0.5mg/0.5ml inj IVP PRN (15:00)
[2020-10-16] MEDS ORDERED: Metoclopramide 10mg/2ml Inj IVP PRN (15:00)
[2020-10-16] MEDS ORDERED: LR 1000ml 1,000 ML IVLG SCH (15:00)
[2020-10-16] MEDS ORDERED: LORazepam Inj 2mg/ml 1ml IV PRN (15:00)
[2020-10-16] MEDS ORDERED: Labetalol 5mg/ml 20ml vial IV PRN (15:00)
[2020-10-16] MEDS ORDERED: Midazolam 2mg/2ml Inj IVP PRN (15:00)
[2020-10-16] MEDS ORDERED: Atropine Sulfate 0.4mg/ml inj IVP PRN (15:00)
--- NOTE | 2020-10-16 15:09 | Brief Operative Note ---
Immediate Post Operative Note Operative Note Pre-op Diagnosis: CHB Procedure: DDD [facility] pacer implant Post-op Diagnosis: same as pre-op Specimen: none Complications: none Condition: stable Fluids: none Estimated Blood Loss: minimal Implant(s) used?: Yes Jacky Rothman MD Oct 16, 2020 15:09
[2020-10-16] MEDS ORDERED: Morphine Sulfate 2mg/ml Inj(IV/IM USE ONLY) IVP PRN (15:15)
[2020-10-16] MEDS ORDERED: Tylenol #3 tab (300mg/30mg) ORAL PRN (15:15)
--- NOTE | 2020-10-16 15:17 | 48 Hour Post Anesthesia Eval ---
Post Anesthesia Evaluation Procedure: Permanent Pacemaker Date of Evaluation: Oct 16, 2020 Time of Evaluation: 17:46 Blood Pressure Systolic: 155 0: 89 Pulse Rate: 66 Respiratory Rate: 18 Temperature (Fahrenheit): 98.6 O2 Sat by Pulse Oximetry: 100 Airway: patent Nausea: No Vomiting: No Pain Intensity: 1 Hydration Status: adequate Cardiopulmonary Status: Stable Mental Status/LOC: patient returned to baseline Follow-up Care/Observations: 0 Post-Anesthesia Complications: 0 Follow-up care needed: N/A Ibrahima Cordova MD Oct 16, 2020 15:17
--- NOTE | 2020-10-16 15:20 | NUR ---
NURSE NOTES: Pt back to ICU per bed asleep S/P pacemaker insertion to LT chest wall,site intact with no swelling or bleeding noted.
--- NOTE | 2020-10-16 15:48 | Diagnostic Imaging Report ---
EXAM: XR Chest, 1 View CLINICAL HISTORY: Evaluate for pneumothorax. TECHNIQUE: Frontal view of the chest. COMPARISON: 10/15/2020. FINDINGS: Lungs: The lungs are well aerated. No consolidative change. Pleural space: No pleural effusion. No pneumothorax. Heart: Cardiomegaly. Mediastinum: Unremarkable. Bones/joints: Unremarkable. Vasculature: Atherosclerotic disease of the aortic knob. Tubes, lines and devices: Pacemaker overlies the left upper chest. IMPRESSION: 1. No pneumothorax. 2. Mild cardiomegaly per 3. Atherosclerotic disease.
--- NOTE | 2020-10-16 16:00 | NUR ---
NURSE NOTES: Chest Xray done,EKG done at bedside.
--- NOTE | 2020-10-16 17:00 | NUR ---
NURSE NOTES: Ice Pack applied to op site,arm sling applied to LT arm.Pt instructed not to lift lt arm above head,pt served dinner and ate with appetite.
--- NOTE | 2020-10-16 18:25 | Cardiology Progress Note ---
Subjective DATE OF SERVICE: Oct 16, 2020 Continued to have 3rd degree AV block with bradycardia. Pacemaker implant completed; patient consented following discussions with his primary MD Objective Last 24 Hour Vital Signs Date Time Temp Pulse Resp B/P (MAP) Pulse Ox O2 Delivery O2 Flow Rate FiO2 10/16/20 18:00 63 15 171/68 (102) 96 10/16/20 18:00 64 18 171/68 (102) 96 10/16/20 17:30 60 18 151/95 (113) 96 10/16/20 17:09 61 16 141/109 (120) 97 10/16/20 17:00 61 17 170/152 (158) 99 10/16/20 17:00 65 22 141/109 (120) 97 10/16/20 16:45 60 19 192/84 (120) 100 10/16/20 16:30 61 19 186/81 (116) 100 10/16/20 16:15 60 13 188/83 (118) 100 10/16/20 16:00 98.0 60 15 186/81 (116) 100 10/16/20 16:00 Nasal Cannula 2.0 10/16/20 16:00 98.8 63 21 169/98 (121) 98 10/16/20 15:51 161/90 (113) 10/16/20 15:30 61 16 10/16/20 15:30 98.0 63 15 143/86 (105) 100 10/16/20 15:17 66 18 100 10/16/20 15:16 66 16 100 10/16/20 13:00 98.6 30 15 136/56 (82) 98 10/16/20 12:00 Nasal Cannula 2.0 10/16/20 12:00 Nasal Cannula 2.0 10/16/20 12:00 37 17 164/64 (97) 98 10/16/20 11:12 30 11 202/61 (108) 100 10/16/20 09:00 30 19 181/72 (108) 96 10/16/20 08:00 Nasal Cannula 2.0 10/16/20 08:00 96.6 33 19 202/85 (124) 96 10/16/20 07:00 67 19 96 10/16/20 06:00 59 19 162/66 (98) 96 10/16/20 05:00 59 19 171/67 (101) 96 10/16/20 04:00 62 21 186/70 (108) 97 10/16/20 04:00 Nasal Cannula 2.0 10/16/20 03:00 74 27 114/53 (73) 98 10/16/20 02:00 76 24 145/65 (91) 10/16/20 00:00 Nasal Cannula 2.0 10/16/20 00:00 75 21 98 10/15/20 23:00 44 16 198/130 (152) 97 10/15/20 22:00 51 19 184/59 (100) 94 10/15/20 21:00 34 17 162/132 (142) 97 10/15/20 20:00 Nasal Cannula 2.0 10/15/20 20:00 39 16 176/59 (98) 97 10/15/20 19:00 68 17 170/62 (98) 97 HEENT: normal ENT inspection RHYTHM: NSR, other - paced LUNGS: lungs clear bilaterally CARDIAC: normal rate, regular rhythm ABDOMEN: normal bowel sounds EXTREMITIES: normal range of motion, No edema Laboratory Tests Test 10/15/20 19:05 10/16/20 03:11 Troponin I 0.117 ng/mL (0.000-0.056) 0.107 ng/mL (0.000-0.056) White Blood Count 8.5 K/UL (4.8-10.8) Red Blood Count 4.08 M/UL (4.70-6.10) L Hemoglobin 13.6 G/DL (14.2-18.0) L Hematocrit 40.1 % (42.0-52.0) L Mean Corpuscular Volume 98 FL (80-99) Mean Corpuscular Hemoglobin 33.4 PG (27.0-31.0) H Mean Corpuscular Hemoglobin Concent 34.0 G/DL (32.0-36.0) Red Cell Distribution Width 12.6 % (11.6-14.8) Platelet Count 126 K/UL (150-450) L Mean Platelet Volume 6.9 FL (6.5-10.1) Neutrophils (%) (Auto) 68.9 % (45.0-75.0) Lymphocytes (%) (Auto) 20.8 % (20.0-45.0) Monocytes (%) (Auto) 8.1 % (1.0-10.0) Eosinophils (%) (Auto) 1.8 % (0.0-3.0) Basophils (%) (Auto) 0.5 % (0.0-2.0) Sodium Level 144 MMOL/L (136-145) Potassium Level 3.6 MMOL/L (3.5-5.1) Chloride Level 111 MMOL/L (98-107) H Carbon Dioxide Level 24 MMOL/L (21-32) Anion Gap 9 mmol/L (5-15) Blood Urea Nitrogen 25 mg/dL (7-18) H Creatinine 1.2 MG/DL (0.55-1.30) Estimat Glomerular Filtration Rate 58.9 mL/min (>60) Glucose Level 87 MG/DL (74-106) Calcium Level 8.7 MG/DL (8.5-10.1) Total Bilirubin 0.6 MG/DL (0.2-1.0) Aspartate Amino Transf (AST/SGOT) 23 U/L (15-37) Alanine Aminotransferase (ALT/SGPT) 32 U/L (12-78) Alkaline Phosphatase 52 U/L (46-116) Pro-B-Type Natriuretic Peptide 4828 pg/mL (0-125) H Total Protein 5.5 G/DL (6.4-8.2) L Albumin 3.2 G/DL (3.4-5.0) L Globulin 2.3 g/dL Albumin/Globulin Ratio 1.4 (1.0-2.7) Thyroid Stimulating Hormone (TSH) 2.816 uiU/mL (0.358-3.740) Free Thyroxine 0.98 NG/DL (0.76-1.46) Microbiology Date/Time Source Procedure Growth Status 10/15/20 13:20 Nasopharynx SARS-CoV-2 Antigen (Rapid)(BENEDICTO) - Final Complete 10/15/20 06:25 Rectum Unverified Assessment/Plan Assessment/Plan Advanced heart block Hypertension/HHD Paroxysmal AFib/flutter Severe pulmonary hypertension s/p permanent pacemaker implant Post op cardiac monitoring Optimize BP control At increased risk for atrial arrhythmias due to elevated PA systolic pressures; will consider full anti-coagulation. Naresh Topete MD Oct 16, 2020 18:25
--- NOTE | 2020-10-16 18:33 | NUR ---
NURSE NOTES: called Dr Rothman if pt can be downgrade to Telemetry,call return and replied okay to transfer pt.
--- NOTE | 2020-10-16 18:53 | NUR ---
NURSE HAND-OFF REPORT: Latest Vital Signs: Temperature 98.8 , Pulse 63 , B/P 171 /68 , Respiratory Rate 15 , O2 SAT 96 , Room Air, O2 Flow Rate 2.0 . Vital Sign Comment: stable EKG Rhythm: A/ V PACED Rhythm change?: Y MD Notified?: N Response: Latest Moeller Fall Score: 45 Fall Risk: High Risk Safety Measures: Call light Within Reach, Bed Alarm Zone 2, Side Rails Side Rails x2, Bed position Low and Locked. Fall Precautions: Yellow Socks Yellow Gown Door Sign Patient Fall Education Report given to Carie Marques RN..
--- NOTE | 2020-10-16 20:44 | Operative Note - Dictated ---
DATE OF OPERATION: 10/16/2020 PERMANENT PACEMAKER IMPLANTATION INDICATION FOR PROCEDURE: Syncope due to complete heart block because her heart rate down to 20s. PROCEDURE PERFORMED: 1. Dual-chamber permanent pacemaker implantation. 2. Fluoroscopic supervision and interpretation. 3. Pacemaker program during initial implant. OPERATIVE REPORT: The patient was brought to the operating room in a fasting state and after informed consent was obtained. The patient was prepped and draped in the usual fashion. Conscious sedation was provided by the anesthesiologist. The patient received antibiotics within an hour of incision. After prep and drape under sterile condition after time-out was performed, a total of 20 mL lidocaine was given to the left prepectoralis area. An incision was made along the left deltopectoral groove. Sharp and blunt dissection was made to the level of pectoralis fascia. The cephalic vein was isolated and cutdown was performed. The right atrial and right ventricular lead was placed through this access and was placed in right atrial appendage and right ventricular apex with excellent sensing and pacing parameters. Both leads were then affixed to underlying pectoralis fascia. A pocket was made close to the venous access site that was irrigated by antibiotic solution. Both leads were then connected to the pacemaker and left in the pocket. The pocket was then closed in three layers using 2-0 Vicryl and Dermabond. The patient suffered no immediate complications from the procedure and was transferred to recovery room in stable condition. FINDINGS: The pacemaker is from [employer], model number [id number], serial number [id number]. Right atrial lead is from [employer]; it is 2088TC 52 cm, serial number [id number]. Right ventricular lead is from [employer]; it is 2088TC 58 cm, serial number is [id number]. The P-wave amplitude was 2 millivolts, threshold was 0.5 volts at 0.4 milliseconds, impedance of 390 ohms. R-wave was not existent. The threshold was 0.75 volts at 0.4 milliseconds, impedance of 550 ohms. IMPRESSION: 1. Successful dual-chamber permanent pacemaker implantation. 2. Pacemaker was programmed to lower rate of 60, upper rate of 130. 3. No immediate complications from the procedure. Jacky Rothman M.D. DR: Colin JOB#: [id number] CC:
[2020-10-16] MEDS: ceFAZolin sod 1 GM in D5W 55 ML IVP SCH (23:32)
[2020-10-17] VITALS: BP 175/76
[2020-10-17 02:00] VITALS: BP 166/76
[2020-10-17 03:00] VITALS: BP 175/68
[2020-10-17 04:00] VITALS: BP 165/75
[2020-10-17 05:00] VITALS: BP 169/71
[2020-10-17] MEDS: ceFAZolin sod 1 GM in D5W 55 ML IVP SCH (07:00)
--- NOTE | 2020-10-17 07:00 | NUR ---
NURSE NOTES: Received report from KATY Lerner. patient is AOx4. Patient in bed, asleep at this time. No pain or discomfort noted at this time. Patient on RA, breathing is even and unlabored with no signs of respiratory distress. Patient with LFa 18, patent and intact. Bed in lowest position, locked with side rails x2 up. Call light within reach.
[2020-10-17 07:12] VITALS: BP 165/87
--- NOTE | 2020-10-17 07:46 | NUR ---
NURSE HAND-OFF REPORT: Important Events on Shift: Patient has been resting since he got transferred Patient Status: Patient is asleep in stable condition. Plan of care endorsed. Diet: Cardiac diet Pending Orders: none Pending Results/Labs:none Pending MD notification:none Latest Vital Signs: Temperature 98.1 , Pulse 60 , B/P 165 /87 , Respiratory Rate 19 , O2 SAT 97 , Room Air, O2 Flow Rate 2.0 . Vital Sign Comment: stable EKG Rhythm: AV-Paced Rhythm change?: cSarlet CAPPS Notified?: Scarlet PAL,RENE CAPPS Response: MD to See Patient Latest Moeller Fall Score: 45 Fall Risk: High Risk Safety Measures: Call light Within Reach, Bed Alarm Zone 2, Side Rails Side Rails x2, Bed position Low and Locked. Fall Precautions: Yellow Socks Yellow Gown Door Sign Patient Fall Education Report given to KATY Pino.
--- NOTE | 2020-10-17 08:32 | General Progress Note ---
Subjective Allergies: Coded Allergies: No Known Allergies (Unverified , 12/20/17) Subjective events noted cards/EP appreciated Objective Last 24 Hour Vital Signs Date Time Temp Pulse Resp B/P (MAP) Pulse Ox O2 Delivery O2 Flow Rate FiO2 10/17/20 07:12 98.1 60 19 165/87 (113) 97 10/17/20 05:00 60 14 169/71 (103) 10/17/20 04:00 76 17 165/75 (105) 10/17/20 04:00 Nasal Cannula 2.0 10/17/20 03:00 74 25 175/68 (103) 10/17/20 02:00 63 20 166/76 (106) 10/17/20 02:00 63 20 166/76 (106) 10/17/20 01:00 60 19 10/17/20 00:00 64 19 175/76 (109) 10/17/20 00:00 Nasal Cannula 2.0 10/16/20 23:00 63 18 151/99 (116) 10/16/20 22:00 60 23 177/82 (113) 10/16/20 21:00 60 15 162/123 (136) 10/16/20 20:00 60 18 157/93 (114) 10/16/20 20:00 Nasal Cannula 2.0 10/16/20 19:00 75 21 157/109 (125) 10/16/20 18:00 63 15 171/68 (102) 96 10/16/20 18:00 64 18 171/68 (102) 96 10/16/20 17:30 60 18 151/95 (113) 96 10/16/20 17:09 61 16 141/109 (120) 97 10/16/20 17:00 61 17 170/152 (158) 99 10/16/20 17:00 65 22 141/109 (120) 97 10/16/20 16:45 60 19 192/84 (120) 100 10/16/20 16:30 61 19 186/81 (116) 100 10/16/20 16:15 60 13 188/83 (118) 100 10/16/20 16:00 98.0 60 15 186/81 (116) 100 10/16/20 16:00 Nasal Cannula 2.0 10/16/20 16:00 98.8 63 21 169/98 (121) 98 10/16/20 15:51 161/90 (113) 10/16/20 15:30 61 16 10/16/20 15:30 98.0 63 15 143/86 (105) 100 10/16/20 15:17 66 18 100 10/16/20 15:16 66 16 100 10/16/20 13:00 98.6 30 15 136/56 (82) 98 10/16/20 12:00 Nasal Cannula 2.0 10/16/20 12:00 Nasal Cannula 2.0 10/16/20 12:00 37 17 164/64 (97) 98 10/16/20 11:12 30 11 202/61 (108) 100 10/16/20 09:00 30 19 181/72 (108) 96 l Intake and Output 10/16/20 10/17/20 19:00 07:00 Intake Total 1280 ml 1610 ml Output Total 522 ml 1427 ml Balance 758 ml 183 ml Intake Oral 720 ml 500 ml IV Total 560 ml 1110 ml Output Urine Total 520 ml 1426 ml Stool Total 2 ml 1 ml Height (Feet): 5 Height (Inches): 9.00 Weight (Pounds): 155 Objective WDWN NAD clear breath sounds bilaterally without rhonchi or wheeze [id number] lucia without MRG NABS nontender no HSM no CCE nonfocal Assessment/Plan Assessment/Plan: IMPRESSION transient a flutter possible heart block syncope pulmonary hypertension elevated TSH s/p pacemkaer PLAN dc planning echo noted; may need right heart cath in future TSH iv hydration await cards clearance with outpatient follow up impression, plan, and exam edited and reviewed in detail care discussed with Maninder Castro MD Oct 17, 2020 08:32
[2020-10-17] MEDS: Heparin 5000 units/ml inj SUBQ SCH (09:00)
[2020-10-17] MEDS: Pantoprazole Inj IVP SCH (09:23)
--- NOTE | 2020-10-17 11:46 | Cardiology Progress Note ---
Subjective DATE OF SERVICE: Oct 17, 2020 Continued to have 3rd degree AV block with bradycardia. Pacemaker implant completed yesterday. Now with paced rhythm. No SOB. Objective Last 24 Hour Vital Signs Date Time Temp Pulse Resp B/P (MAP) Pulse Ox O2 Delivery O2 Flow Rate FiO2 10/17/20 10:25 60 10/17/20 08:00 Nasal Cannula 2.0 10/17/20 07:12 98.1 60 19 165/87 (113) 97 10/17/20 05:00 60 14 169/71 (103) 10/17/20 04:00 76 17 165/75 (105) 10/17/20 04:00 Nasal Cannula 2.0 10/17/20 03:00 74 25 175/68 (103) 10/17/20 02:00 63 20 166/76 (106) 10/17/20 02:00 63 20 166/76 (106) 10/17/20 01:00 60 19 10/17/20 00:00 64 19 175/76 (109) 10/17/20 00:00 Nasal Cannula 2.0 10/16/20 23:00 63 18 151/99 (116) 10/16/20 22:00 60 23 177/82 (113) 10/16/20 21:00 60 15 162/123 (136) 10/16/20 20:00 60 18 157/93 (114) 10/16/20 20:00 Nasal Cannula 2.0 10/16/20 19:00 75 21 157/109 (125) 10/16/20 18:00 63 15 171/68 (102) 96 10/16/20 18:00 64 18 171/68 (102) 96 10/16/20 17:30 60 18 151/95 (113) 96 10/16/20 17:09 61 16 141/109 (120) 97 10/16/20 17:00 61 17 170/152 (158) 99 10/16/20 17:00 65 22 141/109 (120) 97 10/16/20 16:45 60 19 192/84 (120) 100 10/16/20 16:30 61 19 186/81 (116) 100 10/16/20 16:15 60 13 188/83 (118) 100 10/16/20 16:00 98.0 60 15 186/81 (116) 100 10/16/20 16:00 Nasal Cannula 2.0 10/16/20 16:00 98.8 63 21 169/98 (121) 98 10/16/20 15:51 161/90 (113) 10/16/20 15:30 61 16 10/16/20 15:30 98.0 63 15 143/86 (105) 100 10/16/20 15:17 66 18 100 10/16/20 15:16 66 16 100 10/16/20 13:00 98.6 30 15 136/56 (82) 98 10/16/20 12:00 Nasal Cannula 2.0 10/16/20 12:00 Nasal Cannula 2.0 10/16/20 12:00 37 17 164/64 (97) 98 HEENT: normal ENT inspection RHYTHM: NSR, other - paced LUNGS: lungs clear bilaterally, other - pacemaker pocket site without bleeding CARDIAC: normal rate, regular rhythm, normal S1 and S2 ABDOMEN: normal bowel sounds EXTREMITIES: normal range of motion, No edema Microbiology Date/Time Source Procedure Growth Status 10/15/20 13:20 Nasopharynx SARS-CoV-2 Antigen (Rapid)(BENEDICTO) - Final Complete 10/15/20 06:25 Rectum - Final NO CARBAPENEM-RESISTANT ENTEROBACTERI... Complete 10/15/20 06:25 Rectum VRE Culture - Final NO VANCOMYCIN RESISTANT ENTEROCOCCUS ... Complete 10/15/20 06:25 Nasal Nares MRSA Culture - Final Staphylococcus Aureus - Mrsa Complete Assessment/Plan Assessment/Plan Advanced heart block - s/p PPI Hypertension/HHD Paroxysmal AFib/flutter Severe pulmonary hypertension Stable for outpatient management Optimize BP control with additional meds (consider beta ankita) At increased risk for atrial arrhythmias due to elevated PA systolic pressures; will consider full anti-coagulation as outpatient after holter or Zio eval. Naresh Topete MD Oct 17, 2020 11:46
--- NOTE | 2020-10-17 12:00 | NUR ---
NURSE NOTES: Patient school lunch monitor remove. Iv removed from patient. Patient is AO x4 and is in stable condition. Per Dr. Ambrosio patient can go home with no meds. Inventory done with patient and RN with no discrepancies. Patient able to to ambulate to the front of the hospital with RN. Patient reminded to Call personal MD for follow-up.
--- NOTE | 2020-10-17 12:04 | Cardiac Electrophysiology PN ---
Assessment/Plan Assessment/Plan 1. Complete heart block, not due to correctable cause. Off of any sinus-shira or AV-shira blocking agents. The T4 and TSH are both normal. This is a class 1 indication for permanent pacemaker implantation; S/P DDD [employer] PPM implant yesterday with Nl Fx 2. Transient atrial flutter. The patient says his father also had atrial flutter. After pacemaker implantation, we can see the burden of atrial flutter by pacemaker check as out patient. 3. Troponin leak. Low level and no CP. May need ischemia eval as inpatient or out patient per Dr. 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 Remained A sense V paced overnight. Pacer interrogation this AM showed Nl Fx Objective Last 24 Hour Vital Signs Date Time Temp Pulse Resp B/P (MAP) Pulse Ox O2 Delivery O2 Flow Rate FiO2 10/17/20 10:25 60 10/17/20 08:00 Nasal Cannula 2.0 10/17/20 07:12 98.1 60 19 165/87 (113) 97 10/17/20 05:00 60 14 169/71 (103) 10/17/20 04:00 76 17 165/75 (105) 10/17/20 04:00 Nasal Cannula 2.0 10/17/20 03:00 74 25 175/68 (103) 10/17/20 02:00 63 20 166/76 (106) 10/17/20 02:00 63 20 166/76 (106) 10/17/20 01:00 60 19 10/17/20 00:00 64 19 175/76 (109) 10/17/20 00:00 Nasal Cannula 2.0 10/16/20 23:00 63 18 151/99 (116) 10/16/20 22:00 60 23 177/82 (113) 10/16/20 21:00 60 15 162/123 (136) 10/16/20 20:00 60 18 157/93 (114) 10/16/20 20:00 Nasal Cannula 2.0 10/16/20 19:00 75 21 157/109 (125) 10/16/20 18:00 63 15 171/68 (102) 96 10/16/20 18:00 64 18 171/68 (102) 96 10/16/20 17:30 60 18 151/95 (113) 96 10/16/20 17:09 61 16 141/109 (120) 97 10/16/20 17:00 61 17 170/152 (158) 99 10/16/20 17:00 65 22 141/109 (120) 97 10/16/20 16:45 60 19 192/84 (120) 100 10/16/20 16:30 61 19 186/81 (116) 100 10/16/20 16:15 60 13 188/83 (118) 100 10/16/20 16:00 98.0 60 15 186/81 (116) 100 10/16/20 16:00 Nasal Cannula 2.0 10/16/20 16:00 98.8 63 21 169/98 (121) 98 10/16/20 15:51 161/90 (113) 10/16/20 15:30 61 16 10/16/20 15:30 98.0 63 15 143/86 (105) 100 10/16/20 15:17 66 18 100 10/16/20 15:16 66 16 100 10/16/20 13:00 98.6 30 15 136/56 (82) 98 Intake and Output 10/16/20 10/17/20 19:00 07:00 Intake Total 1280 ml 1610 ml Output Total 522 ml 1427 ml Balance 758 ml 183 ml Intake Oral 720 ml 500 ml IV Total 560 ml 1110 ml Output Urine Total 520 ml 1426 ml Stool Total 2 ml 1 ml Microbiology Date/Time Source Procedure Growth Status 10/15/20 13:20 Nasopharynx SARS-CoV-2 Antigen (Rapid)(BENEDICTO) - Final Complete 10/15/20 06:25 Rectum - Final NO CARBAPENEM-RESISTANT ENTEROBACTERI... Complete 10/15/20 06:25 Rectum VRE Culture - Final NO VANCOMYCIN RESISTANT ENTEROCOCCUS ... Complete 10/15/20 06:25 Nasal Nares MRSA Culture - Final Staphylococcus Aureus - Mrsa Complete Objective HEENT: No JVD. Swelling and bruise above his Left eye NECK: Supple. No bruits. Jugular venous pressure normal. LUNGS: Clear. CARDIAC: Regular rhythm, slow rate. Normal S1, S2. No murmur. ABDOMEN: Soft. EXTREMITIES: No edema. Jacky Rothman MD Oct 17, 2020 12:04
--- NOTE | 2020-10-17 14:01 | Diagnostic Imaging Report ---
INDICATION: Pain, intraoperative TECHNIQUE: Intraoperative imaging Fluoroscopy time: 99 seconds Total dose: [id number] mGym2 Total number of images: 2 COMPARISON: None FINDINGS: Intraoperative images document access for pacemaker and placement of leads. IMPRESSION: Intraoperative imaging, as described
--- NOTE | 2020-10-18 11:34 | Discharge Summary ---
Discharge Summary Discharge Summary _ Date of admission: 10/15/2020 Date of discharge: 10/17/[address] Ambrosio History of Present Illness and Brief Hospital Course Mr. Marshall is a 74-year-old male with no reported past medical history who presented to the ED for an evaluation after waking up on the floor next to his bed with a large swelling to his forehead. Patient did not recall what happened. Head CT was negative for acute intracranial abnormality. Chest x-ray was negative for acute cardiopulmonary abnormality. Troponin was minimally elevated. The initial EKG appeared to have a flutter but patient was shaking significantly during the exam. Warming blankets were applied and the repeat EKG showed third-degree heart block. Patient was mentating appropriately and blood pressure was stable. There was no immediate requirement for transcutaneous pacing. Patient was given aspirin and was admitted to the hospital for further management. Patient was found to have complete heart block which was not due to a correctable cause. Patient was off of any sinus shira or AV shira blocking agents. T4 and TSH were both normal. Patient met the class I indication for permanent pacemaker implantation. Patient agreed to permanent pacemaker implant. The echocardiogram revealed ejection fraction of 50-55%. The peak right ventricular systolic pressure of 56 mmHg was consistent with mild pulmonary hypertension. Patient was at increased risk for antiarrhythmias due to elevated pulmonary arterial systolic pressures. Outpatient full anticoagulation will be considered after Holter or ZIO eval. Patient underwent dual-chamber permanent pacemaker implantation. The pacemaker is from [employer]. The rest of the detail on the pacemaker can be found in the operative note by Dr. Rothman. Patient was medically stable for discharge and was discharged home on 10/17/2020. Consultants: Cardiology Dr. Topete, Dr. Rothman Discharge Condition Improved and stable Discharge Activity As tolerated Discharge Diet Regular Final diagnoses Complete heart block Transient atrial flutter Troponin leak s/p permanent pacemaker implant Syncope Pulmonary hypertension I have been assigned to dictate discharge summary for this account. I was not involved in the patient's management Babak Prater Oct 18, 2020 11:34
== END 2020-10-17 12:00 | disposition home or self-care (01) | DRG 244 ==
LOC: EMR 04:51 → ICU 05:03 → EDBEDREQ 05:22 → EDBEDREQSVC 05:49 → EDBEDREQ 05:57 → ICU 06:21 → UNDOADMIN 06:21 → ICU 10-16 01:02 → 2E 10-17 05:51
PROC: 02HK3JZ Insertion of Pacemaker Lead into Right Ventricle, Percutaneous Approach (ICD-10-PCS; principal; 2020-10-16 14:00)
PROC: 0JH606Z Insertion of Pacemaker, Dual Chamber into Chest Subcutaneous Tissue and Fascia, Open Approach (ICD-10-PCS; principal; 2020-10-16 14:00)
PROC: 02H63JZ Insertion of Pacemaker Lead into Right Atrium, Percutaneous Approach (ICD-10-PCS; principal; 2020-10-16 14:00)
DX: I44.2 Atrioventricular block, complete (principal); S09.90XA Unspecified injury of head, initial encounter; I48.92 Unspecified atrial flutter; I27.20 Pulmonary hypertension, unspecified; I10 Essential (primary) hypertension; I49.8 Other specified cardiac arrhythmias
CPT/HCPCS: 36415; 70450; 71045; 76000; 80053; 83880; 84439; 84443; 84484; 85025; 85610; 85730; 86850; 86900; 86901; 87081; 93005; 93306; 94003; 94150; 96360; 99291; J7030